=== PATIENT | male | born 1975 | race Caucasian/White ===

== ENCOUNTER 2025-03-17 09:59 | Outpatient (CLI) | payer OTHER, SELFPAY ==
--- NOTE | ~2025-03-17 | MR_ITS ---
MRI of the right shoulder Technique: Axial proton-density fat-sat images, coronal proton density fat-sat and T2 fat-sat images, and sagittal T1-weighted and T2 fat-sat images were acquired. Clinical History: Injury Findings: There is moderate to advanced AC joint degenerative change, with bony productive change of the distal clavicle in particular. Coracoclavicular, coracoacromial, and coracohumeral ligaments are intact. There are complete, full-thickness tears involving the entirety of the supraspinatus and infraspinatu s tendons, which are retracted to the medial aspect of the humeral head. Fluid-filled gap measures ap proximately 5.1 x 4.4 cm in extent. Subscapularis tendon is intact with severe tendinosis. Tendon of long head of the biceps is intact, with intra-articular tendinosis. There is probable tearing of the posterior superior labrum. Remainder labrum appears intact. Inferior glenohumeral ligament is intact. There is a small glenohumeral joint effusion with fluid pas sing through the rotator cuff defect into the subacromial/subdeltoid bursa. No muscle atrophy or susan a evident. No degenerative change of the glenohumeral joint. Impression: Massive rotator cuff tear, with complete, full-thickness tears of the supraspinatus and infraspinatus tendons, as detailed above. Underlying rotator cuff tendinosis. Possible tear of the posterior superior labrum. Moderate to advanced AC joint degenerative change. Reviewed, dictated and finalized at [facility]. Impression: Massive rotator cuff tear, with complete, full-thickness tears of the supraspin atus and infraspinatus tendons, as detailed above. Underlying rotator cuff tendinosis. Possible tear of the posterior superior labrum. Moderate to advanced AC joint degenerative change.
== END 2025-03-17 10:00 | disposition home or self-care (01) ==
PROVIDERS: PCP Family Medicine; Visit Provider Registered Nurse
DX: S49.91XA Unspecified injury of right shoulder and upper arm, initial encounter (principal); X58.XXXA Exposure to other specified factors, initial encounter; M19.011 Primary osteoarthritis, right shoulder
CPT/HCPCS: 73221

== ENCOUNTER 2025-04-15 07:16 | Outpatient (CLI) | payer OTHER, SELFPAY ==
--- NOTE | 2025-04-15 | CONSULT_PTH ---
PATIENT: Roland Clemens LOC: [facility] U#:[id number] AGE/SX: 50/M ROOM: RE04/15/[address]: Jonathan Parada, ALON : 1975 BED: DIS: 04/15/2025 SPEC #: [id number] RECD: 04/15/25 08:14 STATUS: REVA REQ #: [id number] JESSICA: 04/15/25 00:[address]: KarmaJonathan DEPT: [facility] Consult RECD BY: Shannan Zeng MLT, [facility] ENTERED: 04/15/25 08:14 SP TYPE: Consult OTHR DR: Storm Dunlap, Tissues: A - Peripheral Smear Procedures: Hematology Consult
--- OUTSIDE RECORDS SUMMARY | 2025-04-15 07:21 | XMS_ITS | Encounter Summary ---
Author Organization [facility] Address [address] [place] [address] Care Team Providers Care Foundation Assistant Name Role Phone Storm Dunlap MD Primary Care Provider Encounter Details Date Type Department Care Team (Late st Contact Info) Description 07/01/2017 Abstract [facility] CONVERSION [id number] [place] [address] , Generic Conversion, Social History Tobacco Use Types Packs/Day Years Used Date Smoking Tobacco: Never Assessed Sex and Gender Information Value Date Recorded Sex Assigned at Not on file Legal Sex Male 1:59 PM CDT Gender Identity Not on file Sexual Orientation Not on file documented as of this encounter Plan of Treatment Not on file documented as of this encounter Procedures Procedure Name Priority Date/Time Associated Diagnosis Comments HEALTH FAIR WITH LIPID Routine 07/01/2017 1:33 AM CDT HEMOGLOBIN, GLYCOSYLATED Routine 07/01/2017 1:33 AM CDT PROSTATE SPECIFIC ANTIGEN,SCREENING Routine 07/01/2017 1:33 AM CDT documented in this encounter Results * PROSTATE SPECIFIC ANTIGEN,SCREENING (07/01/2017 1:33 AM CDT) PSA 0.460 <4.0 ng/mL 07/01/2017 3:52 PM CDT [facility] Comment: TEST WAS PERFORMED USING THE GUERITA METHOD. PSA VALUES OBTAINED WITH OTHER ASSAY METHODS OR KITS CANNOT BE USED INTERCHANGEABLY WITH RESULTS OBTAINED BY THE GUERITA METHOD. TESTING PERFORMED [address] [address] SERUM SPECIMEN / Unknown 07/01/2017 1:33 AM CDT 07/01/2017 1:34 AM CDT us Generic Conversion Md [facility] Final R esult [facility] [place] [place] [address], [place] [phone] * HEMOGLOBIN, GLYCOSYLATED (07/01/2017 1:33 AM CDT) HGB A1C 5.5 <5.7 % 07/01/2017 3:42 PM CDT [facility] Comment: INCREASED RISK OF DIABETES<5.7% NON-DIABETES5.7-6.4% INCREASED RISK FOR FUTURE DIABETES> OR = 6.5 CONSISTENT WITH DIABETES STANDARDS OF MEDICAL CARE IN DIABETES-2009[facility], 33(SUPP 1): S1-S61,2010 WHOLE BLOOD SPECIMEN / Unknown 07/01/2017 1:33 AM CDT 07/01/2017 1:34 AM CDT us Generic Conversion Md [facility] Final R radha [facility] [address] [place] [address], [place] [phone] * (ABNORMAL) HEALTH FAIR WITH LIPID (07/01/2017 1:33 AM CDT) WBC 4.6 4.4 - 11.0 x10'3/uL 07/01/2017 1:11 PM CDT [facility] RBC 4.86 4.50 - 5.90 x10'6/uL 07/01/2017 1:11 PM CDT [facility] HGB 15.7 14.0 - 17.5 G/DL 07/01/2017 1:11 PM CDT [facility] HCT 45.8 41.5 - 50.4 % 07/01/2017 1:11 PM CDT [facility] MCV 94.2 80.0 - 96.0 FL 07/01/2017 1:11 PM T [facility] MCH 32.3(H) 26.5 - 31.4 PG 07/01/2017 1:11 PM T [facility] MCHC 34.3 31.9 - 34.8 G/DL 07/01/2017 1:11 PM [facility] RDW 12.7 12.3 - 14.3 % 07/01/2017 1:11 PM [facility] PLT 188 151 - 353 x10'3/uL 07/01/2017 1:11 PM [facility] MPV 10.8 9.7 - 11.9 FL 07/01/2017 1:11 PM [facility] RBC MORPHOLOGY NORMAL 07/01/2017 1:11 PM T [facility] PLT MORPH. NORMAL 07/01/2017 1:11 PM T [facility] WBC MORPHOLOGY NORMAL 07/01/2017 1:11 PM [facility] LYMPHOCYTES % 34.0 15.8 - 45.0 % 07/01/2017 1:12 PM T [facility] NEUTROPHILS % 53.4 42.1 - 71.9 % 07/01/2017 1:12 PM CDT [facility] MONOCYTES % 8.1 5.7 - 12.5 % 07/01/2017 1:12 PM T [facility] EOSINOPHILS 3.9 0.0 - 5.6 % 07/01/2017 1:12 PM [facility] BASOPHILS 0.4 0.0 - 1.3 % 07/01/2017 1:12 [facility] ABS. NEUTROPHILS TOTAL 2.45 1.40 - 6.00 x10'3/uL 07/01/2017 1:12 PM [facility] IMMATURE GRANS % 0.2 0.0 - 0.5 % 07/01/2017 1:12 PM [facility] ABS. LYMPHOCYTES 1.56 0.80 - 4.70 x10'3/uL 07/01/2017 1:12 PM [facility] GLUCOSE 109(H) 70 - 105 MG/DL 07/01/2017 6:41 PM [facility] BUN 12 8.9 - 20.6 MG/DL 07/01/2017 6:41 PM [facility] CREATININE S/P/B 1.17 0.72 - 1.25 MG/DL 07/01/2017 6:41 PM [facility] SODIUM S/P/B 141 136 - 145 MMOL/L 07/01/2017 6:41 PM [facility] POTASSIUM S/P/B 4.1 3.5 - 5.1 MMOL/L 07/01/2017 6:41 PM [facility] CHLORIDE S/P/B 105 98 - 107 MMOL/L 07/01/2017 6:41 PM [facility] CO2 25.0 22 - 29 MMOL/L 07/01/2017 6:41 PM [facility] ANION GAP 15.1 10.0 - 24.0 MMOL/L 07/01/2017 6:41 PM [facility] OSMOLALITY (CALC) 282 271 - 290 MOSM/KG 07/01/2017 6:41 PM [facility] CALCIUM S/P/B 9.4 8.4 - 10.2 MG/DL 07/01/2017 6:41 PM [facility] BILIRUBIN TOTAL S/P/B 0.6 0.2 - 1.2 MG/DL 07/01/2017 6:41 PM [facility] TOTAL PROTEIN S/P/B 7.3 6.4 - 8.3 G/DL 07/01/2017 6:41 PM [facility] ALBUMIN S/P/B 4.4 3.5 - 5.0 G/DL 07/01/2017 6:41 PM [facility] AST 22 5 - 34 U/L 07/01/2017 6:41 PM [facility] ALT 29 6 - 55 U/L 07/01/2017 6:41 PM [facility] ALKALINE PHOSPHATASE S/P/B 67 40 - 115 U/L 07/01/2017 6:41 PM [facility] BUN CREATININE RATIO 10.3 6.0 - 26.0 07/01/2017 6:41 PM [facility] A/G RATIO 1.5 1.1 - 1.9 RATIO 07/01/2017 6:41 PM [facility] EGFR NON-AFR. AMER. >60 >60 ML/MIN/1. 73 M2 07/01/2017 6:41 PM [facility] Comment: GFR Reference Range:Kidney Failure - <15mL/min Chronic Kidney Disease - <60mL/min Normal Kidney Function - >60mL/min GFR calculation is not recommended forPatients less than 18 years or greater than70 years as per the national Kidney Foundation.If the patient is -Citizen Of [place], multiply results by 1.21 TSH 1.53 0.35 - 4.94 uIU/mL 07/01/2017 6:24 PM [facility] CHOLESTEROL 183 <200 MG/DL 07/01/2017 6:41 PM [facility] TRIGLYCERIDES 138 <150 MG/DL 07/01/2017 6:41 PM CDT [facility] HDL 44(L) >45 MG/DL 07/01/2017 6:41 PM T [facility] LDL (CALCULATED) 111.4 <130 MG/L 07/01/20 17 6:41 PM T [facility] CHOL/HDL RATIO 4.2 07/01/2017 6:41 PM T [facility] Comment: INTERPRETATION OF RESULTSNHLBI RECOMMENDED RANGES CHOLESTEROL MG/DL LDL MG/DL DESIRABLE <200 <130 BORDERLINE 200-239 130-159 HIGH RISK >240 >160 REFERENCE VALUE FOR HDL CHOLESTEROL RISK LEVEL MALE MG/DL FEMALE MG/DL DECREASED >45 >55 AVERAGE 45 55 INCREASED <45 <55 OTHER (type in comments) 07/01/2017 1:33 AM CDT 07/01/2017 1:34 AM CDT Comment:WHOLE BLOOD SAMPLE ~ SERUM SPECIMEN~ACELLULAR BLOOD (SERUM OR PLASMA) SPECIMEN us Generic Conversion Md [facility] Final R esult [facility] [address] [place] [address], [place] [phone] documented in this encounter Visit Diagnoses Not on filedocumented in this encounter Care Teams Foundation Assistant Relationship Specialty Start Date End Date Storm Dunlap MD [address] [place] [phone] PCP - General FAMILY PRACTICE 01/08/20 documented as of this encounter
--- OUTSIDE RECORDS SUMMARY | 2025-04-15 07:21 | XMS_ITS | Clinical Summary ---
Author Organization [facility] Address [facility] [place] [address] Care Team Providers Care Gas Tester Name Role Phone Storm Dunlap MD Primary Care Provider Allergies No known active allergies Medications allopurinol 100 MG tablet Take 100 mg by mouth daily. 01/25/2021 Active Immunizations Immunization Administration Dates Next Due Tdap (Boostrix) 04/10/2021 Family History Medical History Relation Comments Heart Disease Father Hypertension Father No Known Problems Mother Relation Status Comments Father Mother Social History Tobacco Use Types Packs/Day Years Used Date Smoking Tobacco: Never Smokeless Tobacco: Never Alcohol Use Standard Drinks/Week Comments Yes 0 (1 standard drink = 0.6 oz pur e alcohol) weekends Sex and Gender Information Value Date Recorded Sex Assigned at Not on file Legal Sex Male 1:59 PM CDT Gender Identity Not on file Sexual Orientation Not on file Last Filed Vital Signs Vital Sign Reading Time Taken Comments Blood Pressure 176/76 04/10/2021 2:44 PM CDT Pulse 65 04/10/2021 2:44 PM CDT Temperature 36 C (96.8 F) 04/10/2021 2:44 PM CDT Respiratory Rate 16 04/10/2021 2:44 PM CDT Oxygen Saturation 100% 04/10/2021 2:44 PM CDT Inhaled Oxygen Concentration - - Weight 136.1 kg (300 lb) 04/10/2021 2:44 PM CDT Height 185.4 cm (6' 1) 04/10/2021 2:44 PM CDT Body Mass Index 39.58 04/10/2021 2:44 PM CDT Plan of Treatment Health Maintenance Due Date Last Done Comments Colorectal Cancer Screening Colonoscopy (10 Years) 1975 Annual Physical 1978 Hepatitis C 1993 Hepatitis B Vaccines (1 of 3 - 19+ 3-dose series) 1994 COVID-19 Vaccine (1 - 2023-2 5 season) 2024 Pneumococcal Vaccine: 50+ Ye ars (1 of 1 - PCV) 2025 Zoster Vaccines (1 of 2) 2025 DTaP, Tdap and Td Vaccines ( 2 - Td or Tdap) 04/10/2031 04/10/2021 Meningococcal B Vaccine Aged Out No l onger eligible based on patient's age to complete this topic Meningococcal Vaccine Aged Out No cailin weston eligible based on patient's age to complete this topic RSV Immunizations Under 20 Months Aged Out No longer eligible based on patient's age to complete this topic Insurance [employer] Care Teams Gas Tester Relationship Specialty Start Date End Date Storm Dunlap MD [address] [place] [phone] PCP - General FAMILY PRACTICE 01/08/20
[2025-04-15 07:37] LABS: Hematocrit 38.1 % (40.0-54.0); Hemoglobin 13.1 g/dL (14.0-18.0); Mean Corpuscular HGB Conc 34.4 g/dL (32-36); Mean Corpuscular Hemoglobin 32.8 pg (27.0-31.0); Mean Corpuscular Volume 95.5 fL (78.0-102.0); Platelet Count Result 182 K/mm3 (150-420); Red Blood Count 3.99 M/mm3 (4.70-6.10); White Blood Count 3.0 K/mm3 (4.8-10.8)
[2025-04-15 08:08] LABS: Alanine Aminotransferase 23 U/L (6-50); Albumin Level 4.4 g/dL (3.5-5.1); Alkaline Phosphatase 59 U/L (38-126); Anion Gap 4 mmol/L (4-12); Aspartate Amino Transferase 26 U/L (17-59); Bilirubin,Total 0.5 mg/dL (0.2-1.3); Blood Urea Nitrogen 15 mg/dL (9-20); Calcium 10.1 mg/dL (8.4-10.2); Carbon Dioxide 26 mmol/L (22-30); Chloride 109 mmol/L (98-107); Estimated Glomerular Filt Rate > 60; Glucose 115 mg/dL (65-110); Magnesium 1.9 mg/dL (1.6-2.3); Osmolality Calculated 289 mOsm/kg (285-295); Potassium 4.7 mmol/L (3.4-5.0); Sodium 139 mmol/L (137-145); Total Protein 6.6 g/dL (6.3-8.2)
[2025-04-15 08:12] LABS: Band Neutrophils Percent 0 % (0-6); Basophils Absolute Manual 0.03 K/mm3 (0-0.1); Basophils Percent Manual 1 % (0-1); Eosinophils Absolute Manual 0.06 K/mm3 (0.02-0.50); Eosinophils Percent Manual 2 % (1-6); Lymphocytes Absolute Manual 1.08 K/mm3 (1.1-4.5); Lymphocytes Percent Manual 36 % (18-44); Monocytes Absolute Manual 0.24 K/mm3 (0.1-0.90); Monocytes Percent Manual 8 % (3-9); Neutrophils Absolute Manual 1.59 K/mm3 (1.3-6.7); Neutrophils Percent Manual 53 % (46-73); Total Cells Counted 100
[2025-04-15 08:38] LABS: Thyroid Stimulating Hormone 2.180 uIU/mL (0.465-4.680)
[2025-04-15 08:58] LABS: Vitamin B12 358.0 pg/mL (239-931)
[2025-04-20 11:08] LABS: Free Testosterone (Direct) 5.6 pg/mL (7.2-24.0)
[2025-04-20 19:37] LABS: Estradiol, Sensitive 13.1 pg/mL (8.0-35.0)
== END 2025-04-15 07:17 | disposition home or self-care (01) ==
LOC: CHSLAB 07:19
PROVIDERS: PCP Family Medicine; Visit Provider Registered Nurse
DX: I10 Essential (primary) hypertension (principal); R53.83 Other fatigue; Z12.5 Encounter for screening for malignant neoplasm of prostate
CPT/HCPCS: 36415; 80053; 82306; 82607; 82670; 83735; 84402; 84403; 84443; 85025